=== PATIENT | female | born 1960 | race Caucasian/White ===

== ENCOUNTER 2024-02-20 09:11 | Day surgery (SDC) | payer BC, OTHER ==
[2024-02-20] MEDS: Sodium Chloride 0.9% 1,000 ML IV SCH (10:06)
[2024-02-20] MEDS ORDERED: Propofol 200 MG/20 ML SDV ONE (10:23)
[2024-02-20] MEDS ORDERED: fentaNYL 50 MCG/ML SDV ONE (10:23)
== END 2024-02-20 12:49 ==
LOC: JP.SDS 09:11
PROVIDERS: ATTEND Surgery
DX: Z12.11 Encounter for screening for malignant neoplasm of colon (principal); K57.30 Diverticulosis of large intestine without perforation or abscess without bleeding; F17.200 Nicotine dependence, unspecified, uncomplicated
CPT/HCPCS: 45378; J2704; J3010; J7030